=== PATIENT | female | born 1965 | race African-American/Black ===

== ENCOUNTER 2017-05-14 07:44 | Emergency (ER) | payer OTHER ==
[2017-05-14 07:57] VITALS: BP 107/66
--- NOTE | 2017-05-14 08:12 | UC ---
Throat Pain/Nasal Wendie HPI - HPI Summary HPI Summary: ST and nasal wendie starting about a week ago. Has been achy with mild cough, denies fever or trouble breathing. Is supposed to travel for work today, has a busy week ahead, very concerned about getting sicker. Does not work around school-aged children or college students. - History of Current Complaint Chief Complaint: UCRespiratory Stated Complaint: SORE THROAT HEADACHE BODYACHES Time Seen by Provider: 05/14/17 07:54 Hx Obtained From: Patient ?: No Onset/Duration: Gradual Onset, Lasting Days Severity: Mild Cough: Nonproductive Associated Signs & Symptoms: Positive: Nasal Discharge. Negative: Wheezing, Hoarseness, Fever, Vomiting, Rash - Allergies/Home Medications Allergies/Adverse Reactions: Allergies Allergy/AdvReac Type Severity Reaction Status Date / Time No Known Allergies Allergy Verified 05/14/17 07:51 Home Medications: Home Medications Multiple Vitamin [Multi Vitamin] 1 tab PO DAILY 05/14/17 [History Confirmed 03/21] PMH/Surg Hx/FS Hx/Imm Hx Previously Healthy: Yes - Surgical History Surgical History: Yes Surgery Procedure, Year, and Place: 2 C-sections and hysterctomy 09/2011 - Family History Known Family History: Positive: Hypertension - Social History Occupation: Employed Full-time Alcohol Use: Weekly Substance Use Type: None Smoking Status (MU): Never Smoked Tobacco Review of Systems Constitutional: Negative Skin: Negative Eyes: Negative ENT: Sore Throat, Nasal Discharge Respiratory: Cough Cardiovascular: Negative Gastrointestinal: Negative Genitourinary: Negative Motor: Negative Neurovascular: Negative Musculoskeletal: Negative Neurological: Negative Psychological: Negative Is Patient Immunocompromised?: No All Other Systems Reviewed And Are Negative: Yes Physical Exam Triage Information Reviewed: Yes Appearance: Well-Appearing, No Pain Distress, Well-Nourished Vital Signs: Initial Vital Signs Temp 97.3 F 05/14/17 07:53 Pulse 60 05/14/17 07:53 Resp 16 05/14/17 07:53 BP 107/66 05/14/17 07:53 Pulse Ox 100 05/14/17 07:53 Vital Signs Reviewed: Yes Eye Exam: Normal Eyes: Positive: Conjunctiva Clear ENT: Positive: Hearing grossly normal, Nasal congestion, Nasal drainage, TMs normal. Negative: TM bulging, TM dull, TM red Dental Exam: Normal Neck exam: Normal Neck: Positive: Supple, Nontender, No Lymphadenopathy Respiratory Exam: Normal Respiratory: Positive: Chest non-tender, Lungs clear, Normal breath sounds, No respiratory distress, No accessory muscle use Cardiovascular Exam: Normal Cardiovascular: Positive: RRR, No Murmur Musculoskeletal Exam: Normal Neurological Exam: Normal Neurological: Positive: Alert Psychological Exam: Normal Skin Exam: Normal Throat Pain/Nasal Course/Dx - Differential Dx/Diagnosis Provider Diagnoses: URI, likely viral Discharge - Discharge Plan Condition: Stable Disposition: HOME Patient Education Materials: Upper Respiratory Infection (ED) Referrals: Josiane Todd MD [Primary Care Provider] - Additional Instructions: No signs of secondary infection; I expect this is viral and should start to markedly improve this week. If you develop fever, trouble breathing, or pain, please get seen again.
== END 2017-05-14 08:10 | disposition home or self-care (01) ==
LOC: UCEAST 07:44
DX: J06.9 Acute upper respiratory infection, unspecified (principal)
CPT/HCPCS: 99211; G0463